=== PATIENT | female | born 1980 | race Hispanic/Latino ===

== ENCOUNTER → 2022-07-02 16:57 | Outpatient (CLI) | payer BC, SELFPAY ==
--- NOTE | ~2022-07-02 | MM_ITS ---
EXAMINATION: MM screening [facility]on BI w sukumar HISTORY: Screening mammogram TECHNIQUE: Craniocaudal and mediolateral oblique 3-D tomosynthesis images were obtained and synthetic 2-D images were generated. CAD analysis was submitted and interpreted. COMPARISON: No prior mammogram is available for comparison at this institution. BREAST PARENCHYMAL COMPOSITION: There are scattered areas of fibroglandular density. FINDINGS: Suggestion of a 1.4 cm circumscribed mass in the posterior mid to upper outer right breast ([facility] Tomosynthesis image 24/88). Circumscribed 5 mm mass is suggested in the upper outer posterior right breast ([facility] Tomosynthesis о[address]га ge 23/) There is asymmetric density in the anterior lower inner right breast and upper outer left breast. IMPRESSION: 1. Right breast masses and bilateral mammographic asymmetries are suggested 2. Bilateral diagnostic mammography and breast ultrasound examination are recommended BI-RADS Category 0: Incomplete: Needs additional imaging evaluation. Reviewed, dictated and finalized at location A. ER BOX TOE IMPRESSION: 1. Right breast masses and bilateral mammographic asymmetries are suggested 2. Bilateral diagnostic mammography and breast ultrasound examination are recom mended BI-RADS Category 0: Incomplete: Needs additional imaging evaluation.
== END ==
PROVIDERS: PCP Physician Assistant; Visit Provider Physician Assistant
DX: Z12.31 Encounter for screening mammogram for malignant neoplasm of breast (principal)
CPT/HCPCS: 77063; 77067

== ENCOUNTER 2022-07-28 09:45 | Outpatient (CLI) | payer BC, SELFPAY ==
--- NOTE | ~2022-07-28 | MMUS_ITS ---
EXAMINATION: MM diagnostic devon BI w sukumar, US breast BI complete HISTORY: 1.4 cm circumscribed mass is suggested in posterior mid to upper outer right breast and circ umcised 5 mm mass suggested in the upper outer posterior right breast on July 02, 2022 screening mammogram. Asymmetric density at .anterior lower inner right breast and upper outer left breast on July 02, 2022 screening mammogram TECHNIQUE: Additional 3-D tomosynthesis images of both breasts were performed and synthetic 2-D image s were generated. CAD analysis was submitted and interpreted. High resolution complete bilateral eli st ultrasound examination including all 4 quadrants and subareolar areas was performed. COMPARISON: July 02, 2022 bilateral screening mammogram FINDINGS: MAMMOGRAPHIC FINDINGS: There are bilateral mammographic asymmetries. No suspicious mass, architectural distortion, malignant calcification, skin thickening or retraction is detected. No prior mammograms are reportedly availab le for comparison. ULTRASOUND: Multiple bilateral parallel circumscribed hypoechoic or sonolucent lesions with through transmission are noted, more numerous on the right. The largest on the right is a single septated cyst or 2 contig uous cysts, measuring up to approximately 7.7 x 15.4 mm dimension. The largest on the left is situate d at 1:00 6 cm from the nipple and measures approximately 6 x 14 x 15.5 mm cyst. No suspicious mass or shadowing of either breast is detected. IMPRESSION: 1. Benign findings; no mammographic evidence for malignancy 2. Routine annual mammographic screening is recommended. BI-RADS Category 2: Benign finding(s). Reviewed, dictated and finalized at location A. IMPRESSION: 1. Benign findings; no mammographic evidence for malignancy 2. Routine annual mammographic screening is recommended. BI-RADS Category 2: Benign finding(s).
== END 2022-07-28 09:46 ==
LOC: MICIMG 09:46
PROVIDERS: PCP Physician Assistant; Visit Provider Physician Assistant
DX: R92.8 Other abnormal and inconclusive findings on diagnostic imaging of breast (principal)
CPT/HCPCS: 76641; 77062; 77066; G0279